=== PATIENT | female | born 1970 | race African-American/Black ===

== ENCOUNTER 2018-11-29 17:17 | Emergency (ER) | payer OTHER, BC ==
[2018-11-29] MEDS ORDERED: METHOCARBAMOL 750 MG TABLET PO ONE (19:14)
[2018-11-29] MEDS ORDERED: IBUPROFEN 600 MG TABLET PO ONE (19:14)
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
[2018-11-29 19:39] VITALS: BP 135/86
== END 2018-11-29 19:39 | disposition home or self-care (01) ==
LOC: ER 17:17
DX: R51 Headache (principal); M54.2 Cervicalgia; M79.621 Pain in right upper arm; V49.40XA Driver injured in collision with unspecified motor vehicles in traffic accident, initial encounter
CPT/HCPCS: 99283; J3490